=== PATIENT | female | born 1960 | race Caucasian/White ===

== ENCOUNTER 2024-03-07 11:35 | Outpatient (AMB) | payer MEDICARE, MEDICAID, SELFPAY ==
--- NOTE | 2024-03-07 11:37 | MHC.OFFVIS ---
Vital Signs 03/07/24 11:39 Height 5 ft 2 in Weight 192 lb 6 oz BMI 35.2 BP 122/68 Blood Pressure Location Rt brachial Position Sitting Respiration 17 Pulse 110 H Pulse Source Pulse Oximeter Pulse Oximetry (%) 98 Oxygen Delivery Method Room Air Intake Visit Reasons: ENP: Undiagnosed CHAYO - Confirmed Intake Note: Pt presents to the office for new pt evaluation for sleep disturbance. Pt reports she snores and though she falls asleep quickly, has trouble staying asleep. She often wakes up with headaches and feels tired throughout the day. Cage Shift Manager Required: No Allergies adhesive Allergy (Mild, Verified 03/07/24 11:39) Rash aspirin Allergy (Mild, Verified 03/07/24 11:39) reflux celecoxib [From Celebrex] Allergy (Mild, Verified 03/07/24 11:39) Stomach Upset ibuprofen Allergy (Mild, Verified 03/07/24 11:39) Stomach Upset HPI Comments Details: 63y/o female comes for sleep evaluation . Main complaints-frequent arousals ,snoring , daytime sleepiness Sleep questionnaire- Difficulty falling asleep-/no Difficulty staying asleep-yes Number of [id number] Snoring-yes Witnessed apneas-yes Gasping arousals-yes Nocturia-yes GERD-no Vivid dreams-no Acting out dreams -no Abnormal behavior in sleep-/no ABnormal movements in sleep-/no Morning headaches-sometimes Excessive daytime sleepiness-yes Daytime naps- yes- 1 nap for 90 min restless legs- no Hallucinations- no sleep paralysis- no Drop attacks- no Sleep study-no PFSH Medical History Plantar fasciitis Hx of migraines Breast cancer Interstitial cystitis Hypothyroidism Hyperlipidemia HTN (hypertension) Fibromyalgia GERD (gastroesophageal reflux disease) Diabetes Depression CTS (carpal tunnel syndrome) Anxiety Hypersomnia Snoring History of torn meniscus of right knee Surgical History H/O bilateral mastectomy History of carpal tunnel surgery Social History Household Members: Spouse Housing: House Alcohol intake: current Comment: 1 glass of wine daily Patient Tobacco Use Status: Never used Tobacco Physical Exam Vital Signs: Last Vital Signs Pulse 110 H 03/07/24 11:39 Resp 17 03/07/24 11:39 BP 122/68 03/07/24 11:39 Pulse Ox 98 03/07/24 11:39 Oxygen Delivery Method Room Air 03/07/24 11:39 BMI result Body Mass Index 35.2 Const General: cooperative, healthy appearing and comfortable Nutritional Appearance: overweight Orientation/consciousness: patient oriented x3 Eyes Pupils: Equal, round and reactive pupils present Neuro Other: yes yes head tremors General: patient oriented x3, gait normal, tone normal, moves all extremities and no focal motor deficits Cranial nerves: Yes Facial sensation intact/muscles of mastication intact, Yes Equal, round and reactive pupils present, Yes Bilaterally intact EOM present, Yes Nystagmus not present, Yes Normal facial strength present and Yes Midline tongue present Cognition (Neuro): normal cognition Gait exam (Neuro): Antalgic gait present Motor exam (neuro): 5/5 motor strength present throughout and Normal motor muscle tone present throughout Deep tendon reflexes (DTR's): Right triceps reflex intensity grade: 1+, Left triceps reflex intensity grade: 1+, Rt Biceps (C5, C6): 1+, Left biceps reflex intensity grade: 1+, Right brachioradialis reflex intensity grade: 1+, Left brachioradialis reflex intensity grade: 1+, Right patellar reflex intensity grade: 1+ and Left patellar reflex intensity grade: 1+ Coordination: [id number]-rval test normal Assessment & Plan Assessment & Plan (1) Snoring: Code(s): R06.83 - Snoring Category: Medical (2) Hypersomnia: Code(s): G47.10 - Hypersomnia, unspecified Category: Medical Plan I will schedule her for a home sleep test to evaluate. Orders: Orders RT home sleep study Today G47.10 - Hypersomnia, unspecified, R06.83 - Snoring Coding Level of Care Code New Pt Level 3 (52682) Diagnoses Snoring R06.83 Hypersomnia G47.10 Barre Sleepiness Scale Questions Sitting and reading: high chance of dozing Watching TV: high chance of dozing Sitting inactive in a theater, movie etc.: slight chance of dozing As a passenger in a car for an hour without break: would never doze Lying down in the afternoon when circumstances permit: high chance of dozing Sitting and talking to someone: would never doze Sitting quietly after lunch without alcohol: high chance of dozing In a car, while stopped for a few minutes in the traffic: would never doze ESS < 10: normal, ESS > 12: pathologic: 13
[2024-03-07 11:39] VITALS: BP 122/68; PULSE 110; RESP 17; O2SAT 98; BMI 35.2
== END 2024-03-07 12:01 | disposition home or self-care (01) ==
PROVIDERS: PCP Student in an Organized Health Care Education/Training Program; Visit Provider Psychiatry & Neurology Neurology
DX: R06.83 Snoring (principal); G47.10 Hypersomnia, unspecified
CPT/HCPCS: 99203

== ENCOUNTER → 2024-03-07 11:35 | Outpatient (BNVA) | payer MEDICARE, MEDICAID, SELFPAY | PROVIDERS: PCP Student in an Organized Health Care Education/Training Program; Visit Provider Psychiatry & Neurology Neurology | DX: R06.83 Snoring (principal); G47.10 Hypersomnia, unspecified | CPT/HCPCS: 99202 ==

== ENCOUNTER → 2024-04-11 09:43 | Outpatient (REF) | payer MEDICARE, MEDICAID, SELFPAY | LOC: HO.SL 09:43 | PROVIDERS: PCP Student in an Organized Health Care Education/Training Program; Visit Provider Psychiatry & Neurology Neurology | DX: G47.33 Obstructive sleep apnea (adult) (pediatric) (principal); G47.10 Hypersomnia, unspecified; R06.83 Snoring | CPT/HCPCS: 95806 ==

== ENCOUNTER → 2024-04-11 09:58 | Outpatient (BNV) | payer MEDICARE, MEDICAID, SELFPAY | PROVIDERS: PCP Student in an Organized Health Care Education/Training Program; Visit Provider Psychiatry & Neurology Neurology | DX: G47.33 Obstructive sleep apnea (adult) (pediatric) (principal) | CPT/HCPCS: 95806 ==

== ENCOUNTER 2024-09-12 14:45 | Outpatient (AMB) | payer MEDICARE, MEDICAID, SELFPAY ==
--- NOTE | 2024-09-12 14:50 | A.OFFVIS_ITS ---
Vital Signs 09/12/24 14:51 Height 5 ft 2 in Weight 198 lb 2 oz BMI 36.2 Pulse 103 H Pulse Source Pulse Oximeter Pulse Oximetry (%) 98 Oxygen Delivery Method Room Air Intake Visit Reasons: Follow up CHAYO Intake Note: Patient presents for follow up Allergies adhesive Allergy (Mild, Verified 09/12/24 14:53) Rash aspirin Allergy (Mild, Verified 09/12/24 14:53) reflux celecoxib [From Celebrex] Allergy (Mild, Verified 09/12/24 14:53) Stomach Upset ibuprofen Allergy (Mild, Verified 09/12/24 14:53) Stomach Upset HPI Comments Details: 64 year old female f/u sleep apnea. Compliance report: 06/2024- 09/2024 Total usage >4 hours 84 days, Avg per night 7hours and 13min. Pressures are [id number]. Leaks 5.5 to Max 47.2 AHI is 1.2 Cleans mask, changes filters and supplies as needed. She continues to have leaks with her mask, called [facility] and requested an appointment for new mask. She still feels tired and takes one nap per day. She says she has morning headaches 3-4x per month and they can last the entire day, nausea and Vertigo. Vertigo, since July 2024, couldn't move her head and room was spinning, has been going to PT per her PCP referral. She is learning to look at the area deliberately and mindfully slow down and walk purposefully with intention. Her vision, hearing and balance is good. Has had some change with BP recently orthostatic hypotension. She is taking Lisinopril 2.5 mg PO with HCTZ daily for BP maintanence and started to monitor her BP with the onset of Vertigo. She will f/u with PCP for BP management in Oct 2024. She is taking Meclizine 25mg BID per PCP Dr. Nolan, [facility]. Her mood is low and has a brother who has cancer and she is coping with 100mg of Sertraline daily. [facility] Medical History Plantar fasciitis Hx of migraines Breast cancer Interstitial cystitis Hypothyroidism Hyperlipidemia HTN (hypertension) Fibromyalgia GERD (gastroesophageal reflux disease) Diabetes Depression CTS (carpal tunnel syndrome) Anxiety Hypersomnia Snoring History of torn meniscus of right knee Surgical History H/O bilateral mastectomy History of carpal tunnel surgery Social History Household Members: Spouse Housing: House Alcohol intake: current Comment: 1 glass of wine daily Patient Tobacco Use Status: Never used Tobacco Review of Systems Const All systems reviewed & are unremarkable except as noted in HPI and below Physical Exam Vital Signs: Last Vital Signs Pulse 103 H 09/12/24 14:51 Pulse Ox 98 09/12/24 14:51 Oxygen Delivery Method Room Air 09/12/24 14:51 BMI result Body Mass Index 36.2 Const General: cooperative, healthy appearing and comfortable Nutritional Appearance: overweight Orientation/consciousness: patient oriented x3 Eyes Pupils: Equal, round and reactive pupils present Neuro Other: yes yes head tremors General: patient oriented x3, gait normal, tone normal, moves all extremities and no focal motor deficits Cranial nerves: Yes Facial sensation intact/muscles of mastication intact, Yes Equal, round and reactive pupils present, Yes Bilaterally intact EOM present, Yes Nystagmus not present, Yes Normal facial strength present and Yes Midline tongue present Cognition (Neuro): normal cognition Gait exam (Neuro): Antalgic gait present Motor exam (neuro): 5/5 motor strength present throughout and Normal motor muscle tone present throughout Deep tendon reflexes (DTR's): Right triceps reflex intensity grade: 1+, Left triceps reflex intensity grade: 1+, Rt Biceps (C5, C6): 1+, Left biceps reflex intensity grade: 1+, Right brachioradialis reflex intensity grade: 1+, Left brachioradialis reflex intensity grade: 1+, Right patellar reflex intensity grade: 1+ and Left patellar reflex intensity grade: 1+ Coordination: [id number]-qd-[id number] test normal Psych Affect: normal affect Attitude: cooperative Thought process: Normal thought process present Thought content: Normal thought content present Insight: Good insight present (Psych) Judgement: Good judgement present (Psych) Results Reviewed Results Reviewed: CPAP -Compliance report: 06/2024- 09/2024 Total usage >4 hours 84 days, Avg per night 7hours and 13min. Pressures are [id number]. Leaks 5.5 to Max 47.2 AHI is 1.2 Assessment & Plan Assessment & Plan (1) Vertigo: Code(s): R42 - Dizziness and giddiness Category: Medical (2) Obstructive sleep apnea hypopnea, moderate: Code(s): G47.33 - Obstructive sleep apnea (adult) (pediatric) Category: Medical Plan Vertigo patient is taking 25mg Meclizine BID Will send her to Vestibular Therapy for Mindful exercises to cope with Vertigo, at [facility] patient preference. Headaches currently taking OTC Tylenol, will evaluate at next visit for increase of frequency or intensity. Monitor BP with changes to BP medications in Oct 2024. (possible to have orthostatic hypotension) Sleep Apnea: Patient is doing well with CPAP use nightly as she continues to have good clinical outcomes, will trial various masks. Patient will f/u in 6 months as needed for Sleep apnea. Orders: Orders PT Evaluation and Treatment Today R42 - Dizziness and giddiness Coding Level of Care Code Est Pt Level 3 (53884) Diagnoses Vertigo R42 Obstructive sleep apnea hypopnea, moderate G47.33 Time Spent (min) 30 Comment vertigo worsening.
[2024-09-12 14:51] VITALS: PULSE 103; O2SAT 98; BMI 36.2
== END 2024-09-12 15:55 | disposition home or self-care (01) ==
PROVIDERS: PCP Student in an Organized Health Care Education/Training Program; Visit Provider Physician Assistant Medical
DX: R42 Dizziness and giddiness (principal); G47.33 Obstructive sleep apnea (adult) (pediatric)
CPT/HCPCS: 99213

== ENCOUNTER → 2024-09-12 14:45 | Outpatient (BNVA) | payer MEDICARE, MEDICAID, SELFPAY | PROVIDERS: PCP Student in an Organized Health Care Education/Training Program; Visit Provider Physician Assistant Medical | DX: G47.33 Obstructive sleep apnea (adult) (pediatric) (principal); R42 Dizziness and giddiness | CPT/HCPCS: 99212 ==

== ENCOUNTER 2025-05-13 10:49 | Outpatient (AMB) | payer MEDICARE, MEDICAID, SELFPAY ==
--- NOTE | 2025-05-13 10:55 | MHC.OFFVIS ---
Vital Signs 05/13/25 10:56 Height 5 ft 2 in Weight 183 lb 6 oz BMI 33.5 BP 114/72 Blood Pressure Location Lt brachial Position Sitting Pulse 105 H Pulse Source Pulse Oximeter Pulse Oximetry (%) 98 Oxygen Delivery Method Room Air Intake Visit Reasons: Follow up Intake Note: Patient presents follow up CHAYO/Vertigo. Compliance in chart(90/90days, >=4hrs-93%, Average usage- 7hr 31min, Med pressure- 8.4, Med leaks-3.5, AHI-1.0). Vertigo is under control(if bends over for to long gets a little dizzy). Accompanied by: Spouse Allergies adhesive Allergy (Mild, Verified 05/13/25 10:59) Rash aspirin Allergy (Mild, Verified 05/13/25 10:59) reflux celecoxib (From Celebrex) Allergy (Mild, Verified 05/13/25 10:59) Stomach Upset ibuprofen Allergy (Mild, Verified 05/13/25 10:59) Stomach Upset HPI Comments Details: 64 year old female f/u sleep apnea and vertigo f/u. Compliance report: 01/2025- 05/2025 Total usage >4 hours 90/90 days, Avg per night 7 hours and 31min. Pressures are 8.4cmH20. Leaks 3.5cmH20 AHI 1.0 She washes the mask, rinses hoses, changes filters and fills reservoir with water daily. She feels refreshed in the mornings, since using this new mask. She goes to bed at 8pm and gets up at 7pm. She says she has morning headaches 3-4x per month and they can last the entire day, she thinks the straps on her head may be too tight, will try to loosen them. Vertigo, has improved, though if she bends over for a long period of time, she will get dizzy and nausea. PT has made a big difference in her nausea and vomiting symptoms. She takes Meclizine 25mg BID per PCP. She looks, and walks with intention and purposefully. Her vision, hearing and balance is stable. She also has started doing some stretching for the neck at home which has helped with her neck pain.Says her mood is good on sertraline 100mg, diet is stable. Memory is okay, stm is poor, however no change in years. She has tremors of her head, for about one year now, and tremors bilaterally in hands, she says her feet go crazy at night, and she takes magnesium and Gabapentin. She denies neuropathy, burning, tingling, radiating pain. She has lost 20 lbs since January 2025 on Trulicity. She is trying to eliminate use of certain medications to help figure out which medication may be causing her action tremor, worse with talking and sewing per . FH + mom Glioma and Dad throat cancer. [facility] Medical History Plantar fasciitis Hx of migraines Breast cancer Interstitial cystitis Hypothyroidism Hyperlipidemia HTN (hypertension) Fibromyalgia GERD (gastroesophageal reflux disease) Diabetes Depression CTS (carpal tunnel syndrome) Anxiety Hypersomnia Snoring History of torn meniscus of right knee Surgical History H/O bilateral mastectomy History of carpal tunnel surgery Social History Household Members: Spouse Housing: House Alcohol intake: current Comment: 1 glass of wine daily Patient Tobacco Use Status: Never used Tobacco Physical Exam Vital Signs: Last Vital Signs Pulse 105 H 05/13/25 10:56 BP 114/72 05/13/25 10:56 Pulse Ox 98 05/13/25 10:56 Oxygen Delivery Method Room Air 05/13/25 10:56 BMI result Body Mass Index 33.5 Const General: cooperative, healthy appearing and comfortable Nutritional Appearance: overweight Orientation/consciousness: patient oriented x3 Eyes Pupils: Equal, round and reactive pupils present Neuro Other: yes head tremor at rest, voice tremor increased bilateral upper extremities tremor worse with action and when fatigued. Gait is off balance. General: patient oriented x3, gait normal, tone normal and moves all extremities Cranial nerves: Yes Facial sensation intact/muscles of mastication intact, Yes Equal, round and reactive pupils present, Yes Normal accommodation reflex present, Yes Bilaterally intact EOM present, Yes Nystagmus not present, Yes Normal facial strength present, Yes Midline tongue present, Yes Ability to bilaterally rotate head present (limited rom due to vertigo) and Yes Ability to bilaterally elevate shoulders present Cognition (Neuro): normal cognition Gait exam (Neuro): Antalgic gait present Motor exam (neuro): 5/5 motor strength present throughout and Normal motor muscle tone present throughout Coordination: [id number] test normal Psych Appearance: grossly normal Speech and movement: Restless speech present Affect: Anxious affect present Attitude: cooperative Thought process: Normal thought process present Thought content: Normal thought content present Results Reviewed Results Reviewed: Compliance report: 01/2025- 05/2025 Total usage >4 hours 90/90 days, Avg per night 7 hours and 31min. Pressures are 8.4cmH20. Leaks 3.5cmH20 AHI 1.0 She washes the mask, rinses hoses, changes filters and fills reservoir with water daily. Assessment & Plan Assessment & Plan (1) Obstructive sleep apnea hypopnea, moderate: Code(s): G47.33 - Obstructive sleep apnea (adult) (pediatric) Category: Medical (2) Vertigo: Code(s): R42 - Dizziness and giddiness Category: Medical Plan CHAYO Patient is doing well with CPAP use nightly as she continues to have good clinical outcomes. Vertigo patient is taking 25mg Meclizine BID declines PT today. Will send her to Vestibular Therapy for Mindful exercises to cope with Vertigo, at [facility] patient preference, if needed in future. Headaches currently taking OTC Tylenol, will evaluate at next visit for increase of frequency or intensity. Monitor BP with changes to BP medications due to changes in BP (possible to have orthostatic hypotension) Patient will f/u in 3 months as needed for Sleep apnea. Patient Instructions: Sleep Hygiene provided: set a scheduled bedtime and wake time to help regulate the circadian rhythm and balance the release of pituitary hormones. Sleep in a dark room, temperatures below 68 degrees, and no devices n bed. Limit caffeinated products 6 hours prior to bed, and limit fluids 2-4 hours prior to bed. Gentle night yoga, diffusing essential oils, and playing soft music can be relaxing. Coding Level of Care Code Est Pt Level 4 (29262) Diagnoses Obstructive sleep apnea hypopnea, moderate G47.33 Vertigo R42
[2025-05-13 10:56] VITALS: BP 114/72; PULSE 105; O2SAT 98; BMI 33.5
== END 2025-05-13 11:55 | disposition home or self-care (01) ==
LOC: HO.HSMS 10:50
PROVIDERS: PCP Student in an Organized Health Care Education/Training Program; Visit Provider Physician Assistant Medical
DX: G47.33 Obstructive sleep apnea (adult) (pediatric) (principal); R42 Dizziness and giddiness
CPT/HCPCS: 99214

== ENCOUNTER → 2025-05-13 10:49 | Outpatient (BNVA) | payer MEDICARE, MEDICAID, SELFPAY | PROVIDERS: PCP Student in an Organized Health Care Education/Training Program; Visit Provider Physician Assistant Medical | DX: G47.33 Obstructive sleep apnea (adult) (pediatric) (principal); R42 Dizziness and giddiness | CPT/HCPCS: 99212 ==

== ENCOUNTER 2025-08-19 09:45 | Outpatient (AMB) | payer MEDICARE, MEDICAID, SELFPAY ==
[2025-08-19 10:10] VITALS: BP 124/78; PULSE 88; O2SAT 97; BMI 33.7
--- NOTE | 2025-08-19 10:10 | A.OFFVIS_ITS ---
Vital Signs 08/19/25 10:10 Height 5 ft 2 in Weight 184 lb 6 oz BMI 33.7 BP 124/78 Blood Pressure Location Lt brachial Position Sitting Pulse 88 Pulse Source Pulse Oximeter Pulse Oximetry (%) 97 Oxygen Delivery Method Room Air Intake Visit Reasons: 3 month - confirmed appt Intake Note: Patient presents follow up CHAYO. Compliance in chart(90/90days, >=4hrs-97%, Average Usage-7hr 28min, Med Pressure-8.4, Med Leaks4.5, AHI-0.6). Accompanied by: Self / Same As Patient Allergies adhesive Allergy (Mild, Verified 08/19/25 10:12) Rash aspirin Allergy (Mild, Verified 08/19/25 10:12) reflux celecoxib (From Celebrex) Allergy (Mild, Verified 08/19/25 10:12) Stomach Upset ibuprofen Allergy (Mild, Verified 08/19/25 10:12) Stomach Upset HPI Comments Details: 64 year old female f/u sleep apnea and vertigo f/u. Compliance report: 05/2025 to 08/2025 Total usage >4 hours 90/90 days, Avg per night 7 hours and 31min. Pressures are 8.4cmH20. Leaks 3.5cmH20 AHI 1.0 She washes the mask, rinses hoses, changes filters and fills reservoir with water daily. She feels refreshed in the mornings, since using the new airfit 20 full face mask. She goes to bed at 8pm and gets up at 7am. She has morning headaches 3-4x per month and they can last the entire day, she makes neck wraps for the cervical spine. She PT with exercises to stretch the trapezius, SCM, and now has targeted injections in the trapezius q monthly with [facility] Dr. August Singh. The vertigo, has improved, though if she bends over for a long period of time, she will get dizzy and has nausea. PT has made a big difference in her nausea /vomiting symptoms. She takes Meclizine 25mg BID per PCP and now balance and gait has improved. Says her mood is less irritable since starting Sertraline 150mg, and diet is stable on trulicity so appetite is suppressed. Memory is stable. She has tremors of her head, for one year now. Tremors bilaterally in hands. The feet go crazy, with spasm, jump at night. She takes magnesium and Gabapentin 100mg po BID, she tried Lyrica and it was ineffective. She denies neuropathy, burning, tingling, radiating pain. She would like to try NIDRA, as she continues to have leg cramps and fragmented sleep. She says tremors are worse with talking and sewing per . [facility] Medical History Plantar fasciitis Hx of migraines Breast cancer Interstitial cystitis Hypothyroidism Hyperlipidemia HTN (hypertension) Fibromyalgia GERD (gastroesophageal reflux disease) Diabetes Depression CTS (carpal tunnel syndrome) Anxiety Hypersomnia Snoring History of torn meniscus of right knee Surgical History H/O bilateral mastectomy History of carpal tunnel surgery Social History Household Members: Spouse Housing: House Alcohol intake: current Comment: 1 glass of wine daily Patient Tobacco Use Status: Never used Tobacco Physical Exam Vital Signs: Last Vital Signs Pulse 88 08/19/25 10:10 BP 124/78 08/19/25 10:10 Pulse Ox 97 08/19/25 10:10 Oxygen Delivery Method Room Air 08/19/25 10:10 BMI result Body Mass Index 33.7 Const General: cooperative, healthy appearing and comfortable Nutritional Appearance: overweight Orientation/consciousness: patient oriented x3 Eyes Pupils: Equal, round and reactive pupils present Neuro Other: head, neck tremor at rest, voice tremor bilateral upper extremities tremor worse with action and fatigue. Gait leans to the right. General: patient oriented x3, gait normal, tone normal and moves all extremities Cranial nerves: Yes Facial sensation intact/muscles of mastication intact, Yes Equal, round and reactive pupils present, Yes Normal accommodation reflex present, Yes Bilaterally intact EOM present, Yes Nystagmus not present, Yes Normal facial strength present, Yes Midline tongue present, Yes Ability to bilaterally rotate head present (limited rom due to vertigo) and Yes Ability to bilaterally elevate shoulders present Cognition (Neuro): normal cognition Gait exam (Neuro): Antalgic gait present Motor exam (neuro): 5/5 motor strength present throughout and Normal motor muscle tone present throughout Deep tendon reflexes (DTR's): Right triceps reflex intensity grade: 2+, Left triceps reflex intensity grade: 2+, Rt Biceps (C5, C6): 2+, Left biceps reflex intensity grade: 2+, Right brachioradialis reflex intensity grade: 2+, Left brachioradialis reflex intensity grade: 2+, Right patellar reflex intensity grade: 2+ and Left patellar reflex intensity grade: 2+ Coordination: [id number]-ny-chvo test normal Psych Appearance: grossly normal Speech and movement: Restless speech present Affect: Anxious affect present Attitude: cooperative Thought process: Normal thought process present Thought content: Normal thought content present Results Reviewed Results Reviewed: Compliance report: 05/2025 to 08/2025 Total usage >4 hours 90/ days, Avg per night 7 hours and 31min. Pressures are 8.4cmH20. Leaks 3.5cmH20 AHI 1.0 She washes the mask, rinses hoses, changes filters and fills reservoir with water daily. Assessment & Plan Assessment & Plan (1) Obstructive sleep apnea hypopnea, moderate: Code(s): G47.33 - Obstructive sleep apnea (adult) (pediatric) Category: Medical (2) Vertigo: Code(s): R42 - Dizziness and giddiness Category: Medical (3) RLS (restless legs syndrome): Comment: nidra Code(s): G25.81 - Restless legs syndrome Category: Medical Plan CHAYO Patient is doing well with CPAP use nightly as she continues to have good clinical outcomes. Vertigo patient is taking 25mg Meclizine BID declines PT today. Will send her to Vestibular Therapy prn Vertigo. Headaches currently taking OTC Tylenol, declines meds. Tremors head and neck declines meds. Airfit F.20 full face mask rx sent to [facility]. RLS will rx nidra for jumpy legs as she may be a good candidate. May f/u in 6 mon. Medications: New [nidra tonic motor activation rls] As directed 2 ea 0RF rls G25.81 - Restless legs syndrome Patient Instructions: Sleep Hygiene provided: set a scheduled bedtime and wake time to help regulate the circadian rhythm and balance the release of pituitary hormones. Sleep in a dark room, temperatures below 68 degrees, and no devices n bed. Limit caffeinated products 6 hours prior to bed, and limit fluids 2-4 hours prior to bed. Gentle night yoga, diffusing essential oils, and playing soft music can be relaxing. Coding Level of Care Code Est Pt Level 4 (82742) Diagnoses Obstructive sleep apnea hypopnea, moderate G47.33 Vertigo R42 RLS (restless legs syndrome) G25.81
== END 2025-08-19 10:50 | disposition home or self-care (01) ==
LOC: HO.HSMS 09:45
PROVIDERS: PCP Student in an Organized Health Care Education/Training Program; Visit Provider Physician Assistant Medical
DX: G47.33 Obstructive sleep apnea (adult) (pediatric) (principal); R42 Dizziness and giddiness; G25.81 Restless legs syndrome
CPT/HCPCS: 99214

== ENCOUNTER → 2025-08-19 09:45 | Outpatient (BNVA) | payer MEDICARE, MEDICAID, SELFPAY | PROVIDERS: PCP Student in an Organized Health Care Education/Training Program; Visit Provider Physician Assistant Medical | DX: G47.33 Obstructive sleep apnea (adult) (pediatric) (principal); R42 Dizziness and giddiness; G25.81 Restless legs syndrome; Z99.89 Dependence on other enabling machines and devices | CPT/HCPCS: 99212 ==